=== PATIENT | female | born 1995 | race Asian ===

== ENCOUNTER 2021-06-30 23:44 | Emergency (ER) | payer BC ==
[~2021-06-30] VITALS: Ht 170.2 cm; Wt 99.8 kg
[2021-07-01] MEDS ORDERED: VITAMIN D350000 UNIT PO (00:16)
[2021-07-01 01:04] LABS: PLATELET COUNT 262 K/uL (152-353)
[2021-07-01 01:08] LABS: POTASSIUM 3.8 mmol/L (3.6-5.2)
[2021-07-01 02:45] VITALS: BP 124/63; TEMP 98.6
== END 2021-07-01 02:45 | disposition home or self-care (01) ==
LOC: ED 23:44
PROVIDERS: Emergency Medicine Emergency Medical Services
DX: K80.50 Calculus of bile duct without cholangitis or cholecystitis without obstruction (principal)
CPT/HCPCS: 36415; 80053; 81000; 81025; 82150; 83690; 85027; 96360; 96361; 96374; 96375; 99284; J1885; J2270; J2405; Q9963

== ENCOUNTER 2021-07-07 08:12 | Outpatient (CLI) | payer BC ==
[~2021-07-07 08:12] MED LIST: VITAMIN D350000 UNIT PO
== END 2021-07-07 20:43 | disposition home or self-care (01) ==
LOC: NM 08:12
PROVIDERS: ATTEND Internal Medicine
DX: R10.11 Right upper quadrant pain (principal)
CPT/HCPCS: A9537